=== PATIENT | female | born 1935 | race Caucasian/White ===

== ENCOUNTER 2019-03-15 09:30 | Inpatient (IN) ==
[2019-03-15] MEDS ORDERED: NS 500 ML IV ONE (09:56)
[2019-03-15] MEDS ORDERED: VANCOMYCIN 1 GM/NS 1 GM/250 ML IVPB IV ONE (09:56)
[2019-03-15] MEDS ORDERED: NS 1,000 ML IV ONE (09:56)
[2019-03-15] MEDS ORDERED: MAXIPIME 2 GM in NS 100 ML IV ONE (09:56)
[2019-03-15] MEDS ORDERED: NS 2,000 ML ONE (10:01)
[2019-03-15 11:06] LABS: CK INDEX 1.4 (0.0-2.5); CK-MB 33.83 ng/mL (0.0-5.0)
[2019-03-15 12:00] LABS: BASO# 0.01 X1000 (0.0-0.2); BASO% 0.1 % (0.0-0.8); HEMATOCRIT 38.4 % (37.0-47.0); HEMOGLOBIN 12.7 g/dL (12.0-16.0); IMM GRAN# 0.03 X1000 (0.0-0.04); IMM GRAN% 0.3 % (0.0-0.5); LYMPH# 0.59 X1000 (1.2-3.4); MCH 32.2 PG (27-31); MCHC 33.1 g/dL (33-37); MCV 97.2 FL (81-99); MONO# 0.97 X1000 (0.11-0.59); MONO% 9.8 % (1.7-9.3); MPV 10.4 FL (7.4-10.4); NEUT# 8.28 X1000 (1.4-6.5); NEUT% 83.8 % (42.2-75.2); PLT 269 X1000 (130-400); RBC 3.95 XMIL (4.2-5.4); RDW 14.4 % (11.5-14.5); WBC 9.88 X1000 (4.8-10.8)
[2019-03-15 12:04] LABS: INR 1.07
[2019-03-15 12:05] LABS: PTT 28.8 Seconds (22.3-41.8)
[2019-03-15 12:07] LABS: ALB/GLOB RATIO 1.5; ALBUMIN 4.3 g/dL (3.5-5.0); CALCIUM 9.3 mg/dL (8.8-10.2); CREATININE 0.9 mg/dL (0.5-0.9); POTASSIUM 4.3 mmol/L (3.5-5.1); TOTAL BILIRUBIN 1.04 mg/dL (0.20-1.00); TOTAL PROTEIN 7.1 g/dL (6.3-8.3)
--- NOTE | 2019-03-15 12:28 | Diag Imaging Result Doc PS360 ---
EXAM: CT HEAD W/O CONTRAST - 03/15/2019 HISTORY: ams TECHNIQUE: CT head without contrast COMPARISON: 08/17/2018 FINDINGS: There are atrophic changes and chronic microvascular ischemic changes similar to prior. There is no indication of recent infarct, although acute infarcts may not be immediately visible. There is no evidence of intracranial hemorrhage, mass effect, or midline shift. There is no evidence of skull fracture. There are postsurgical changes at the left frontoparietal skull similar to prior. Visualized portions of paranasal sinuses and mastoid air cells appear clear. IMPRESSION: No visible acute intracranial abnormality. No hemorrhage or mass effect. This exam was performed using automated exposure control, adjustment of mA or kV according to patient size, and/or use of iterative reconstruction technique. Electronically signed by Bari Lomeli 03/15/2019 12:26 PM
--- NOTE | 2019-03-15 12:35 | Diag Imaging Result Doc PS360 ---
EXAM: CT PELVIS W/O CONTRAST - 03/15/2019 HISTORY: leg/pelvic pain post fall TECHNIQUE: CT bony pelvis without contrast COMPARISON: 10/22/2017 CT abdomen/pelvis FINDINGS: There is a comminuted intertrochanteric fracture of the right femur with varus deformity. There is an apparent subacute compression fracture the superior L4 vertebral body which is partially visualized at the top of the scan. There is associated sclerosis which is compatible with some healing. There is retropulsion of the posterior margin of L4 into the spinal canal measuring 4 mm. IMPRESSION: Intertrochanteric fracture of right femur with varus deformity. Subacute compression fracture of L4. This exam was performed using automated exposure control, adjustment of mA or kV according to patient size, and/or use of iterative reconstruction technique. Electronically signed by Bari Lomeli 03/15/2019 12:33 PM
[2019-03-15] MEDS ORDERED: MORPHINE IV ONE (13:07)
--- NOTE | 2019-03-15 13:41 | PROVIDER DOCUMENTATION ---
This chart was entered by Ying Rose Scribe, acting as scribe for Pardeep Pickens MD. HPI-Musculoskeletal Pain/Inj - GENERAL Chief Complaint: Fall Stated Complaint: FALL/ POSSIBLE FEMUR FX Time Seen by Provider: 03/15/19 09:35 Source: patient, EMS - HX OF PRESENT ILLNESS-MUSKULOSKELTAL Nature of Presenting Problem: 83 yowf presents to the ed via ems post fall. pt was found by her neighbor in the floor of her home with complaint of rt hip pain. pt has obvious shortening of RLE and pain with movement or palpation of area. pt vital signs showed she was hypothermic and beir hugger was placed on pt. pt will be sent to [facility] for rehabilitation for a head/pelvis CT via ambulance Quality of Pain: reports: sharp, stabbing Severity in ED: moderate Onset/Duration: unsure (neighbor hound this am and not sure when pt fell) Timing: still present Modifying Factors: improves with: immobilization. worse with: movement, palpation Any recent injury?: Yes (fall at home) Locality of Occurance: Home Similar Symptoms Previously?: No Recently seen or treated by another doctor?: No - FALL INJURY Location of Pain/Injury: reports: other (rt hip) Reason for Fall: reports: unknown Symptoms prior to fall:: reports: none Loss of Consciousness: unsure (pt doesnt think so but has dementia) Injury Associated Symptoms: reports: joint pain (rt hip), unable to bear weight, trouble walking. denies: back/neck pain, chest pain, headaches, nausea, shortness of breath, vomiting - HIP/PELVIS PAIN/INJURY Hip Pain Location: reports: hip (R) Pain Radiation: reports: no radiation Context / Method of Injury: reports: fall Associated Symptoms: reports: denies symptoms - LOWER EXTREMITY PAIN/INJURY Context / Method of Injury: reports: fell Associated Symptoms: reports: denies symptoms Review of Systems - Adult - REVIEW OF SYSTEMS - ADULT ROS:: limited per condition (dementia pt poor historian) Constitutional: reports: no symptoms reported Eyes: denies: blurred vision, double vision Ears, Nose, Mouth & Throat: reports: no symptoms reported Cardiovascular: denies: chest pain, palpitations Respiratory: denies: cough, shortness of breath, wheezing Gastrointestinal: denies: abdominal pain, diarrhea, nausea, vomiting Genitourinary: reports: no symptoms reported Musculoskeletal: reports: see HPI, joint pain, joint swelling. denies: back pain, neck pain Integumentary: reports: no symptoms reported Neurological: denies: dizziness/vertigo, headache/migraines Psychiatric: reports: no symptoms reported Endocrine: reports: no symptoms reported Hematologic/Lymphatic: reports: no symptoms reported Allergic/Immunologic: reports: no symptoms reported All Other Systems: Reviewed and Negative Past History - Adult - PAST MEDICAL HISTORY-ADULT Review of Records: reports: Old Records Reviewed, Nursing Assessment Review, Medications Reviewed, Social history reviewed & non-contributory. Major Childhood Illnesses: reports: denies history Cardiovascular: reports: HTN, hyperlipidemia Respiratory: reports: denies history Gastrointestinal: reports: GERD Obstetrical/Gynecological: reports: denies history Genitourinary: reports: denies history Musculoskeletal: reports: denies history Hand Dominance: Right Handed Neurological: reports: dementia, TIA Psychiatric: reports: denies history Endocrine/Immune: reports: thyroid disorder (hypo) Other Conditions: reports: cataract/glaucoma - PRIOR SURGERIES/PROCEDURES Surgical/Procedure History: reports: hysterectomy, other (brain hemorrhage) - IMMUNIZATION STATUS Childhood Immunizations: See Nurse Assessment Flu Vaccine: See Nurse Assessment - FAMILY HISTORY Family History: reviewed, not pertinent - SOCIAL HISTORY Smoking: quit greater than 1 year Substance Use: none/never Living Situation: family Physical Exam-Injury Related - Physical Exam-Injury Related Exam Limited by: pt is poor historiansecondary to dementia Initial Vital Signs Reviewed: Yes (temp-88.2 HR-102 RR-27 O2-87% RA BP-153/114) General Appearance: alert, no apparent distress (poor historian) Eyes: PERRL/EOMI, pink conjunctivae Head, Ears, Nose, Mouth & Throat: moist mucous membranes Neck: non-tender, full range of motion, supple, normal inspection Respiratory: chest non-tender, lungs clear, normal breath sounds, increased rate (27), other (87% on RA) Cardiovascular: normal peripheral pulses, tachycardia (102) Chest/Breast: deferred Abdominal Exam: normal bowel sounds, non tender, soft Female Genitalia/Pelvic Exam: deferred Rectal Exam: deferred Hemoccult Exam: deferred Lymphatic: no adenopathy Back Exam: normal inspection, no CVA tenderness, no vertebral tenderness Extremity: normal capillary refill, swelling (rt proximal thigh), tenderness (rt proximal hip/thigh region tenderness and swelling with shortening noted to RLE). negative: normal range of motion, normal gait, normal inspection Integumentary: normal color, warm/dry, swelling (rt proximal thigh) Neurologic: grossly normal Psych/Mental Status: normal mood/affect, normal thought content, normal thought process, other (pt is alert but has dementia so is baseline confused) - Glascow Coma Score Best Eye Response (Ophiem): (4) open spontaneously Best Verbal Response (Ophiem): (4) confused conversation Best Motor Response (Ophiem): (6) obeys commands Ophiem Total: 14 Progress - PLAN OF CARE/RESULTS Progress/Plan/Lab Results: Vital Signs - 8 hr 03/15/19 09:32 03/15/19 10:06 03/15/19 11:03 Temperature 88.2 F L 91.9 F L Pulse Rate 102 H 94 H 97 H Respiratory Rate 27 H 22 24 Blood Pressure 153/114 150/81 149/52 O2 Sat by Pulse Oximetry 87 L 95 03/15/19 13:23 03/15/19 13:30 Temperature 96.1 F L Pulse Rate 110 H Respiratory Rate 24 Blood Pressure 145/93 O2 Sat by Pulse Oximetry 95 03/15/19 10:28 Influenza Screen - Final Nasopharyngeal Laboratory Results - last 24 hr 03/15/19 03/15/19 03/15/19 09:40 09:40 09:40 WBC RBC Hgb Hct MCV MCH MCHC RDW Std Deviation Plt Count MPV Immature Gran % (Auto) Neut % (Auto) Lymph % (Auto) Erath % (Auto) Eos % (Auto) Baso % (Auto) Immature Gran # (Auto) Neut # (Auto) Lymph # (Auto) Erath # (Auto) Eos # (Auto) Baso # (Auto) PT INR PTT (Actin FS) Sodium Potassium Chloride Carbon Dioxide Anion Gap BUN Creatinine Estimated GFR/1.73 m2 BUN/Creatinine Ratio Glucose Calculated Osmolality Calcium Total Bilirubin AST ALT Alkaline Phosphatase Creatine Kinase 2460 H Creatine Kinase Index 1.4 CK-MB (CK-2) 33.83 H Troponin T < 0.010 Total Protein Albumin Globulin Albumin/Globulin Ratio Plasma Lactate 4.2 H* 03/15/19 03/15/19 03/15/19 09:40 09:40 09:40 WBC 9.88 RBC 3.95 L Hgb 12.7 Hct 38.4 MCV 97.2 MCH 32.2 H MCHC 33.1 RDW Std Deviation 14.4 Plt Count 269 MPV 10.4 Immature Gran % (Auto) 0.3 Neut % (Auto) 83.8 H Lymph % (Auto) 6.0 L Erath % (Auto) 9.8 H Eos % (Auto) 0.0 Baso % (Auto) 0.1 Immature Gran # (Auto) 0.03 Neut # (Auto) 8.28 H Lymph # (Auto) 0.59 L Erath # (Auto) 0.97 H Eos # (Auto) 0.00 Baso # (Auto) 0.01 PT 14.0 INR 1.07 PTT (Actin FS) 28.8 Sodium 138 Potassium 4.3 Chloride 94 L Carbon Dioxide 24 L Anion Gap 20 BUN 21 Creatinine 0.9 Estimated GFR/1.73 m2 60 BUN/Creatinine Ratio 23 Glucose 123 H Calculated Osmolality 280 Calcium 9.3 Total Bilirubin 1.04 H AST 59 H ALT 20 Alkaline Phosphatase 116 H Creatine Kinase Creatine Kinase Index CK-MB (CK-2) Troponin T Total Protein 7.1 Albumin 4.3 Globulin 2.8 Albumin/Globulin Ratio 1.5 Plasma Lactate Orders Category Date Time Status Cardiac Monitoring DIRECTED Care 03/15/19 09:56 Active Broussard Cath Insertion ORDERED Care 03/15/19 11:34 Active IV Insertion ORDERED Care 03/15/19 09:56 Completed IV Insertion ORDERED Care 03/15/19 09:56 Completed Notify MD of + Sepsis Screen NOW Care 03/15/19 09:56 Active Notify MD/PA/TAMARA for exam NOW Care 03/15/19 09:56 Active Notify Physician As Ordered Care 03/15/19 09:56 Active Repeat Vital Signs .Blood Pressure Care 03/15/19 09:56 Active Repeat Vital Signs .Heart Rate Care 03/15/19 09:56 Active Repeat Vital Signs .Oxygen Saturation Care 03/15/19 09:56 Active Repeat Vital Signs .Respiratory Rate Care 03/15/19 09:56 Active Repeat Vital Signs .Temp Care 03/15/19 09:56 Active CHEST-1 VIEW [RAD] Stat Exams 03/15/19 11:[address] HEAD W/O CONTRAST [CT] Stat Exams 03/15/19 11:[address] PELVIS W/O CONTRAST [CT] Stat Exams 03/15/19 11:26 Completed BLOOD CULTURE [BLDCUL] Stat Lab 03/15/19 10:24 Results CBC WITH DIFF [HEME] Stat Lab 03/15/19 09:40 Completed CK PROFILE [SP CHEM] Stat Lab 03/15/19 09:40 Completed COMPREHENSIVE METABOLIC PANEL [CHEM] Stat Lab 03/15/19 09:40 Completed Flu Swab [INFLUENZA SCREEN A/B] Stat Lab 03/15/19 10:28 Completed LACTATE, PLASMA [CHEM] Q3H Lab 03/15/19 13:40 Ordered LACTATE, PLASMA [CHEM] Q3H Lab 03/15/19 16:00 Uncollected LACTATE, PLASMA [CHEM] Timed Lab 03/15/19 09:40 Completed PROTIME WITH INR [COAG] Stat Lab 03/15/19 09:40 Completed PTT [COAG] Stat Lab 03/15/19 09:40 Completed TROPONIN T Stat Lab 03/15/19 09:40 Completed URINALYSIS W/POSS RFLX CULT [URINALYSIS] Stat Lab 03/15/19 13:22 Ordered URINALYSIS [URINALYSIS] Stat Lab 03/15/19 13:22 Ordered 0.9% Sodium Chloride Inj [Ns] 1,000 ml Med 03/15/19 13:30 Active IV 150 mls/hr 0.9% Sodium Chloride Inj [Ns] 1,000 ml Med 03/15/19 09:56 Discontinued IV As Directed mls/hr 0.9% Sodium Chloride Inj [Ns] 2,000 ml Med 03/15/19 10:01 Discontinued .ROUTE As directed 0.9% Sodium Chloride Inj [Ns] 500 ml Med 03/15/19 09:56 Discontinued IV 999 mls/hr CefEPIME [Maxipime] 2 gm Med 03/15/19 09:56 Discontinued 0.9% Sodium Chloride Inj [Ns] 100 ml IV NOW Morphine Med 03/15/19 13:07 Discontinued 2 mg IV NOW ONE Vancomycin 1 gm/Ns Med 03/15/19 09:56 Discontinued 1 gm in 250 ml IV NOW Oxygen Device Stat Oth 03/15/19 09:56 Completed Oxygen Device Stat Oth 03/15/19 11:44 Active Result Diagrams: 03/15/19 09:40 03/15/19 09:40 - REASSESSMENT Reassessment #1 Time Reassessed: 10:08 (devon soto placed on pt for hypothermia ) Status: unchanged Reassessment #2 Time Reassessed: 11:41 (body temp has improved ) Status: improving Reassessment #3 Time Reassessed: 13:08 (pt is resting i bed) Status: unchanged - EKG 1 Time of EKG reading by physician:: 10:26 EKG Read and Signed by:: Pardeep Pickens EKG Interpretation (*Must complete 3 of following elements*): Abnormal Rate: 99 Rhythm: NSR with fusion complexes [place]: normal QRS: normal ST Wave: non-specific ST changes (inferiorly) - XRAY 1 XRAY: Bilateral XRAY Study: Chest Impression: See EMR Report - CT/MRI 1 CT Study: Pelvis Impression: See EMR Report (EXAM: CT PELVIS W/O CONTRAST - 03/15/2019 HISTORY: leg/pelvic pain post fall TECHNIQUE: CT bony pelvis without contrast COMPARISON: 10/22/2017 CT abdomen/pelvis FINDINGS: There is a comminuted intertrochanteric fracture of the right femur with varus deformity. There is an apparent subacute compression fracture the superior L4 vertebral body which i s partially visualized at the top of the scan. There is associated sclerosis which is compatible with some healing. There is retropulsion of the posterior margin of L4 into the spinal canal measuring 4 mm. IMPRESSION: Intertrochanteric fracture of right femur with varus deformity. Subacute compr ession fracture of L4. This exam was performed using automated exposure control, adjustment of mA or kV according to patient size, and/or use of iterative reconstruction technique. Electronically signed by Bari Lomeli 03/15/2019 12:33 PM 03/15/19 1233 Interpreting Physician: Bari Lomeli MD Dictated Date/Time: 03/15/19 1227 cc: Pardeep Pickens MD; Marcial Gallegos MD) 2 CT Study: Head Impression: See EMR Report (EXAM: CT HEAD W/O CONTRAST - 03/15/2019 HISTORY: ams TECHNIQUE: CT head without contrast COMPARISON: 08/17/2018 FINDINGS: There are atrophic changes and chronic microvascular ischemic changes similar to prior. There is no indication of recent infarct, although acute infarcts may not be immediately visible. There is no evidence of intracranial hemorrhage, mass effect, or midline shift. There is no evidence of skull fracture. There are postsurgical changes at the left frontoparietal skull similar to prior. Visualized portions of paranasal sinuses and mastoid air cells appear clear. IMPRESSION: No visible acute intracranial abnormality. No hemorrhage or mass effect. This exam was performed using automated exposure control, adjustment of mA or kV according to patient size, and/or use of iterative reconstruction technique. Electronically signed by Bari Lomeli 03/15/2019 12:26 PM 03/15/19 1226 Interpreting Physician: Bari Lomeli MD Dictated Date/Time: 03/15/19 1221 cc: Pardeep Pickens MD; Marcial Gallegos MD) - CONSULTS/PCP/HOSPITALIST Notification #1 *Consult/PCP/Hospitalist*: hospitalist Time Discussed: 13:38 Consult Disposition: Admit #2 Consult: dr grant roque Time Discussed: 13:39 Reason/Comments: will consult Consult Disposition: Will see in ED Departure - Departure Date of Disposition Decision: 03/15/19 Time of Disposition Decision: 13:00 DIAGNOSIS: Closed intertrochanteric fracture of right femur Qualifiers: Encounter type: initial encounter Fracture alignment: displaced Qualified Code(s): S72.141A - Displaced intertrochanteric fracture of right femur, initial encounter for closed fracture Rhabdomyolysis Qualifiers: Rhabdomyolysis type: non-traumatic Qualified Code(s): M62.82 - Rhabdomyolysis Disposition: ADMITTED INPATIENT 09 Certified Medical Emergency: Emergent Condition: Good Referrals and Follow-Ups: Marcial Gallegos MD [Primary Care Provider] - - Critical Care Note This patient required my direct & personal management of CC.: Yes Total Time (mins): 42 Critical Care Statement: This patient required my direct personal management to treat or rule out processes, the absence of which, could potentiallly result in sudden, clinically significant life or limb threatening deterioration. Attestation - Physician/ TRACEY Attestation Patient care was provided by Advanced Practice Provider:: No The physician spent face to face time with patient:: Yes Advanced Practice Provider documentation review:: Supervising physician onsite and consulted in the evaluation and care of this patient. The physician did have a face to face encounter with the patient. This chart was documented by the indicated scribe, (Ying Rose Scribe) and accurately reflects the services I performed and decisions made by me, Pardeep Pickens MD, as attested by the provider's signature.
--- NOTE | 2019-03-15 13:46 | Diag Imaging Result Doc PS360 ---
EXAM: CHEST-1 VIEW - 03/15/2019 HISTORY: cough/possible sepsis TECHNIQUE: Portable chest one view COMPARISON: 10/26/2017 FINDINGS: Heart size appears mildly enlarged. There is nonspecific opacity at the medial left base which is somewhat similar to prior and may relate to scarring, atelectasis, or infiltrate. There is subsegmental atelectasis at the right base. The upper lungs appear clear of acute changes. There is no substantial pleural effusion or pneumothorax identified. There is an old fracture deformity of the right clavicle noted. IMPRESSION: Left basilar scarring versus recurrent atelectasis or infiltrate. Electronically signed by Bari Lomeli 03/15/2019 1:43 PM
[2019-03-15 14:23] LABS: URINE SOURCE CATH
[2019-03-15 14:26] LABS: BILIRUBIN URINE NEGATIVE (NEGATIVE); BLOOD URINE MODERATE (NEGATIVE); COLOR YELLOW; GLUCOSE URINE NEGATIVE (NEGATIVE); KETONE URINE 10 mg/dL (NEGATIVE); LEUKOCYTES URINE NEGATIVE (NEGATIVE); NITRITE URINE NEGATIVE (NEGATIVE); PROTEIN URINE 30 mg/dL (NEGATIVE); SP GRAVITY URINE 1.023; TURBIDITY URINE CLEAR (CLEAR); UROBILINOGEN URINE NORMAL (NORMAL)
[2019-03-15] MEDS ORDERED: TYLENOL PO PRN ×2 (14:26→14:29)
[2019-03-15] MEDS ORDERED: ZOFRAN IV PRN (14:26)
[2019-03-15 14:27] LABS: UR EPITHELIAL CELLS <10 /HPF (<10); URINE BACTERIA NEGATIVE /HPF; URINE RBC <10 /HPF (<10); URINE WBC <10 /HPF (<10)
[2019-03-15] MEDS ORDERED: ROCEPHIN 2 GM in NS 50 ML IV SCH (14:30)
[2019-03-15] MEDS: NS 1,000 ML IV SCH (14:57)
[2019-03-15] MEDS: DILAUDID IV PRN (15:29)
--- NOTE | 2019-03-15 15:34 | HISTORY AND PHYSICAL ---
PRIMARY CARE PHYSICIAN: Dr. Marcial Gallegos. ORTHOPEDICS: Dr. Jose Diaz. CHIEF COMPLAINT: Fall, right hip pain. HISTORY OF PRESENT ILLNESS: This is an 83-year-old female with a prior history of dementia, hypothyroid, hypertension, hyperlipidemia. She presents to the emergency room after being found out on her carport by neighbors. It is unknown how long she was actually out on the carport and she does not remember falling or the incident. The son stated that the patient thought yesterday, she might have the flu because she had a headache and felt bad all over. On arrival to the emergency room, she complained of right leg pain, headache, and she did have some swelling to her right eye. CT of the pelvis revealed intertrochanteric fracture of the right femur with varus deformity. PAST MEDICAL HISTORY: 1. Hypertension. 2. Dementia. 3. Hyperlipidemia. 4. Hypothyroid. 5. History of a brain bleed after a fall 5 years ago. PAST SURGICAL HISTORY: Cataract removal, hysterectomy, repair of brain bleed 5 years ago. SOCIAL HISTORY: She lives alone. She has children that are close and active in her care. She does not smoke. She does drink alcohol occasionally. She denies any illicit drug use. ALLERGIES: Ambien which causes confusion. HOME MEDICATIONS: Elavil, vitamin D3, Synthroid, melatonin, Namenda, Toprol, Crestor, and vitamin B1. REVIEW OF SYSTEMS: Discussed with patient with pertinent positives stated in the HPI. She denied any syncope or dizziness, any change in vision, any chest pain, palpitations, shortness of breath, cough, fever, chills, any nausea, vomiting, diarrhea, constipation, black or bloody vomitus or stools, hematuria, dysuria, frequency, urgency. PHYSICAL EXAMINATION: GENERAL: This is an 83-year-old female who is lying on the stretcher in the emergency room in no distress. VITAL SIGNS: Blood pressure is 149/50, with heart rates at 97. Respirations are 22. Temperature is 97.1 degrees, O2 saturations are 94 to 96 percent on 2 L nasal cannula. HEENT: Head is normocephalic, atraumatic. Mucous membranes are moist. NECK: Supple with trachea midline. CARDIOVASCULAR: Regular rate and rhythm. S1 and S2 appreciated. She has edema to her right proximal thigh. Calves are nontender with peripheral pulses palpable x4 extremities. PULMONARY: Breath sounds are clear with no increased work of breathing noted. Chest rises and falls symmetric to respiration. GASTROINTESTINAL: Abdomen is soft, nontender, nondistended, with bowel sounds in all 4 quadrants. GENITOURINARY: She has no CVA tenderness. Broussard is patent to bedside bag with clear yellow urine draining. NEUROLOGIC: She is alert. She is oriented to herself and family members. LABORATORY AND DIAGNOSTIC DATA: WBC is 9.8, with hemoglobin 12.7, hematocrit 38.4, platelets of 269,000. Sodium 138, potassium 4.3, BUN 21, creatinine 0.9, with a glucose of 123. Total bilirubin is 1.04. Total CPK is 2460 with a CK-MB of 33.83. Troponin less than 0.010. Lactate is 4.2. CT of the head revealed no visible acute intracranial abnormality. No hemorrhage or mass effect. Pelvis CT revealed a right intertrochanteric fracture with varus deformity and subacute compression fracture of L4. Chest x-ray with left basilar scarring versus recurrent atelectasis or infiltrate that was present on October 2017 film. ASSESSMENT: 1. Fall. 2. Right intertrochanteric femur fracture. 3. Hypothermia 4. Hypoxemia. 5. Rhabdomyolysis. 6. Left basilar scarring versus recurrent atelectasis or infiltrate. 7. Dementia. 8. Hypothyroid. PLAN: The patient will be admitted to the surgical floor. She will be placed on telemetry. Dr. Diaz been consulted from Orthopedic Surgery. We will consult Video Journalist for discharge planning. Will continue with supplemental oxygen, start incentive spirometer q.4 hours when awake. She will be placed on telemetry. She will remain NPO until seen by Dr. Diaz. We will check a total CPK and a BMP tonight at 8:00. Repeat a CBC, CMP, total CK in the morning. We will give Dilaudid for pain. Antibiotic coverage of Rocephin and azithromycin, and further antibiotics will be culture driven. Will use Zofran for nausea. We will continue with IV hydration. We will identify her home medications and continue as appropriate. For GI prophylaxis, Prilosec. Further treatments pending hospital course. The patient was examined and plan was discussed with Dr. Banks. Dictated by TAMARA Segura for Doug Casillas MD Addendum: Patient seen and examined by myself. Agree with TAMARA note. It reflects my assessment and plan. Patient is being admitted to hospital for right hip fracture and rhabdomyolysis. Will consult Orthopedics and will provide IV fluids, check BMP and CK daily. cc: TAMARA Segura MD [facility]
--- NOTE | 2019-03-15 16:36 | Diag Imaging Result Doc PS360 ---
EXAM: XRAY PELVIS W/HIP 2-3VW RT - 03/15/2019 HISTORY: Hip Fracture TECHNIQUE: Portable right hip and pelvis three views COMPARISON: 03/15/2019 CT pelvis FINDINGS: There is an intertrochanteric fracture of the right femur with varus deformity, as seen on the prior CT. There is no other fracture or dislocation identified. IMPRESSION: Intertrochanteric fracture of right femur with varus deformity. Electronically signed by Bari Lomeli 03/15/2019 4:33 PM
--- NOTE | 2019-03-15 16:38 | Diag Imaging Result Doc PS360 ---
EXAM: FEMUR MIN 2 VIEWS RIGHT - 03/15/2019 HISTORY: Hip fracture TECHNIQUE: Right femur two views COMPARISON: None. FINDINGS: Other than the intertrochanteric fracture of the proximal femur, there is no fracture identified. IMPRESSION: No fracture identified other than the intertrochanteric fracture. Electronically signed by Bari Lomeli 03/15/2019 4:36 PM
--- NOTE | 2019-03-15 16:40 | ORTHOPAEDICS CONSULTATION ---
DATE: 03/15/2019 REFERRING PHYSICIAN: Florencia LENNON. REASON FOR CONSULTATION: Right hip fracture. PAST MEDICAL HISTORY: 1. Hypertension. 2. Hyperlipidemia. 3. Dementia. 4. Hypothyroid. PAST SURGICAL HISTORY: 1. Cataract surgery. 2. Esophageal hiatal hernia repair. 3. Cranial surgery, status post fall. MEDICATIONS: 1. Synthroid. 2. Melatonin. 3. Rosuvastatin. 4. Vitamin B. 5. Vitamin D3. 6. Metoprolol. 7. Nexium. 8. Memantine. 9. Amitriptyline. ALLERGIES: The patient has allergy to Ambien. SOCIAL HISTORY: Patient lives in [place] alone. She is a community ambulator without assistive device. She still drives. Denies any tobacco, alcohol, or drug use. FAMILY HISTORY: Noncontributory. REVIEW OF SYSTEM: A 10-point review of systems was completed and is negative other than what is listed in history of present illness. CHIEF COMPLAINT: Right hip pain. HISTORY OF PRESENT ILLNESS: Ms. Chirinos is an 83-year-old lady who sustained a same-level fall outside yesterday evening, while walking back up into her house from getting the mail. She was found down the following morning by her neighbor and transferred via ambulance to the hospital. Patient was found to be hypothermic upon arrival, and had significant pain and deformity in the right hip. X-rays were taken demonstrating a right intertrochanteric femur fracture. Orthopedic Surgery was thus consulted. Lab work done upon arrival demonstrating elevated CPK levels secondary to rhabdomyolysis due to her fall and prolonged time on the ground lying there. The patient denies any hip pain prior to the fall. Her daughter states she has had several falls recently over the last couple of years. She has dementia that has been worsening as of late. PHYSICAL EXAMINATION: General: Ms. Chirinos is an 83-year-old, female, who appears well nourished, well developed, in no acute distress. She is awake and alert, but not oriented to person, place, or time. Vital Signs: Temperature 98.2 degrees Fahrenheit, heart rate is 119, respiratory rate 24, blood pressure 138/57, O2 saturation is 91% on 2 L by nasal cannula. HEENT: Normocephalic, atraumatic. Respiratory: Nonlabored breathing. Cardiovascular: Regular rate and rhythm. Extremities: Examination of right lower extremity shows skin intact. Patient has tenderness to palpation over her hip on the right side. She is nontender in her knee, leg, ankle, and foot. Motor is intact to EHL, tibialis anterior, gastrocsoleus complex. Sensation intact to light touch of L3-S1. Dorsalis pedis pulses palpable and equal bilaterally. Thigh and calf soft, compressible. Examination of left lower extremity and bilateral upper extremities shows skin to be intact with no areas of swelling, crepitus, or deformity. Nontender palpation globally in her other extremities. She is neurovascularly intact. LABORATORY DATA: White count 10, hemoglobin 12.7, hematocrit 38, platelets 269,000. INR is 1.1. Sodium 138, potassium 4.3, chloride 94, CO2 is 24, BUN 21, creatinine 0.9, glucose 123. Creatine kinase is 2460. Troponin is less than 0.01. Lactate us 2.4. UA is negative for infection. IMAGING: CT scan of the pelvis obtained by the ER physician, demonstrated a comminuted, shortened, right intertrochanteric femur fracture. ASSESSMENT: An 83-year-old female status post fall the previous evening and was found down this morning with a right comminuted intertrochanteric femur fracture as well as rhabdomyolysis. PLAN: 1. A long discussion was had with the patient and family regarding diagnosis and treatment options. Given her fracture pattern, she would benefit from closed reduction and intramedullary nailing of her intertrochanteric femur fracture. Risks, benefits, alternative therapies were discussed with the patient and family regarding surgery. Risks of surgery include, but are not limited to, risks of bleeding, infection, damage to nerves and vessels around the area, continued pain following surgery, need for revision surgery, malunion and nonunion. There is also risk of anesthesia including blood clot, stroke, heart attack, even . The patient and family understand these risks. All questions were answered. We will plan on doing surgery tomorrow morning as long as she is cleared by the Hospitalist Service. 2. The patient is to be nonweightbearing to right lower extremity. We will get her hooked up with Pugh's traction to help with the alignment of the fracture and muscle spasms through the night. 3. Ice to right lower extremity as needed for pain. 4. Okay for diet up until midnight tonight. NPO at midnight tonight in anticipation of surgery in the morning. 5. Admit to hospitalist for surgical clearance.
[2019-03-15 20:45] LABS: CALCIUM 7.9 mg/dL (8.8-10.2); CREATININE 0.9 mg/dL (0.5-0.9); POTASSIUM 4.2 mmol/L (3.5-5.1)
[2019-03-16] MEDS: NS 1,000 ML IV SCH (00:08)
[2019-03-16] MEDS: PRILOSEC PO SCH (06:28)
--- NOTE | 2019-03-16 06:41 | ORTHOPAEDICS PROGRESS NOTE ---
DATE: 03/16/2019 SUBJECTIVE: No acute events overnight. The patient was resting in her room in Pugh's traction. She has been n.p.o. since midnight. LABS: Hematocrit is 38. OBJECTIVE: Examination of right lower extremity shows Pugh's traction to be intact. Thigh and calf soft and compressible. Toes are up and downgoing. Sensation is grossly intact to light touch L3 to S1. Dorsalis pedis pulse palpable. ASSESSMENT: This is an 83-year-old female with a right intertrochanteric femur fracture. PLAN: 1. We will plan on going to the operating room this morning for closed reduction and intramedullary nailing of her right intertrochanteric femur fracture. She is to remain nonweightbearing on right lower extremity until surgery. She is NPO since midnight. 2. Hold chemical DVT prophylaxis until postop. 3. Ice to right lower extremity as needed for pain. 4. I appreciate the hospitalist's recommendations. 5. I will have physical therapy start to work with the patient postoperatively. She will likely need placement in rehab upon discharge.
[2019-03-16 07:10] LABS: BASO# 0.01 X1000 (0.0-0.2); BASO% 0.1 % (0.0-0.8); EOS# 0.01 X1000 (0.0-0.7); EOS% 0.1 % (0.0-10.0); HEMATOCRIT 29.3 % (37.0-47.0); HEMOGLOBIN 9.7 g/dL (12.0-16.0); IMM GRAN# 0.04 X1000 (0.0-0.04); IMM GRAN% 0.4 % (0.0-0.5); LYMPH# 0.86 X1000 (1.2-3.4); LYMPH% 9.2 % (20.5-51.1); MCH 33.7 PG (27-31); MCHC 33.1 g/dL (33-37); MCV 101.7 FL (81-99); MONO# 0.97 X1000 (0.11-0.59); MONO% 10.4 % (1.7-9.3); MPV 10.2 FL (7.4-10.4); NEUT# 7.42 X1000 (1.4-6.5); NEUT% 79.8 % (42.2-75.2); PLT 210 X1000 (130-400); RBC 2.88 XMIL (4.2-5.4); RDW 15.5 % (11.5-14.5); WBC 9.31 X1000 (4.8-10.8)
[2019-03-16 07:20] LABS: BANDS 4 % (0-1); LYMPHS 8 % (21-51); MONO 6 % (1-9); SEGS 82 % (42-75)
[2019-03-16 07:42] LABS: ALB/GLOB RATIO 1.3; ALBUMIN 3.3 g/dL (3.5-5.0); TOTAL BILIRUBIN 0.48 mg/dL (0.20-1.00); TOTAL PROTEIN 5.8 g/dL (6.3-8.3)
[2019-03-16] MEDS ORDERED: DIPRIVAN 1% ONE (07:54)
[2019-03-16] MEDS ORDERED: KEFZOL 1 GM/D5W 1 GM/50 ML IVPB ONE (08:35)
[2019-03-16] MEDS ORDERED: MARCAINE 0.25% PF/EPI 1:200,000 ONE (09:37)
[2019-03-16] MEDS ORDERED: MILK OF MAGNESIA PO PRN (10:13)
[2019-03-16] MEDS ORDERED: MORPHINE IV PRN (10:13)
[2019-03-16] MEDS ORDERED: ZOFRAN IV PRN (10:13)
[2019-03-16] MEDS ORDERED: KEFZOL 1 GM/D5W 1 GM/50 ML IVPB IV SCH (10:15)
[2019-03-16] MEDS ORDERED: DUONEB (A & A) INH PRN ×2 (10:18→13:14)
--- NOTE | 2019-03-16 11:05 | Diag Imaging Result Doc PS360 ---
EXAM: FEMUR MIN 2 VIEWS RIGHT HISTORY: Post-op TECHNIQUE: Four views COMPARISON: 03/15/2019 FINDINGS: There has been orthopedic fixation of the prior intertrochanteric fracture. The femoral júnior is well-positioned within the shaft of the femur. The femoral head is well-positioned in the acetabulum. There are lateral skin dixie. IMPRESSION: Recent orthopedic fixation of the intertrochanteric fracture. Electronically signed by Devon Gonzáles 03/16/2019 11:02 AM
[2019-03-16] MEDS: DILAUDID IV PRN (11:47)
--- NOTE | 2019-03-16 12:30 | OPERATIVE NOTE ---
PROCEDURE DATE: 03/16/2019 PREOPERATIVE DIAGNOSIS: Right intertrochanteric femur fracture. POSTOPERATIVE DIAGNOSIS: Right intertrochanteric femur fracture. PROCEDURE PERFORMED: Closed reduction and intramedullary nailing of right intertrochanteric femur fracture. SURGEON: Dr. Jose Diaz. ASSISTANTS: None. ANESTHESIA: Spinal. COMPLICATIONS: None. SPECIMENS: None. DRAINS: None. BLOOD LOSS: 50 mL. IMPLANTS: Synthes right-sided TFN nail measuring 380 mm x 11 mm with a 90 mm helical blade and a 38 mm distal interlocking screw. INDICATIONS FOR PROCEDURE: Ms. Chirinos is an 83-year-old lady who was found down outside of her house 2 nights ago. She was seen in the ER yesterday and was found to have an intertrochanteric femur fracture. Given her fracture pattern, a decision was made to proceed to the operating room for closed reduction and intramedullary nailing. Risks, benefits, and alternative therapies were discussed with the patient and family regarding surgery. Risks of surgery include, but are not limited to risks of bleeding, infection, damage to nerves and vessels around the area, malunion, nonunion, continued pain following surgery, and need for revision surgery. There are also risks of anesthesia including blood clot, stroke, heart attack, even . Patient understands these risks. All questions were answered. Informed consent was obtained. DESCRIPTION OF PROCEDURE: Ms. Chirinos was identified by wristband and greeted in the preop holding area on 03/16/2019. Her right lower extremity, which is the operative site, was then marked with indelible ink per [facility] Your Site protocol. Following this, the patient was transferred back to the operating room for surgery. Upon entering the OR, a spinal anesthetic was placed while on her hospital bed. She was then transferred in a supine position onto the [place] table. Feet were wrapped with Webril and Coban, and placed into the boot holders. All bony prominences were well padded. At this time, a reduction maneuver was performed. A little bit of traction was pulled. Fluoroscopy was brought in, confirming reduction of the fracture. At this time, the right lower extremity was then prepped and draped in routine sterile fashion. Formal time-out was performed, confirming correct patient, procedure, operative site, operative side, and administration of preop antibiotics. Everyone was in agreement. Patient received 2 g of Ancef prior to incision. A knife was used to make a standard 3 cm longitudinal incision about 2 cm proximal to the tip of the greater trochanter. Knife was used to dissect through skin, subcutaneous fat, and fascia. At this time, a finger was placed into the wound and the tip of the greater trochanter was palpated. A guidewire was then placed on the tip of the greater trochanter and fluoroscopy was used to confirm starting point on both AP and lateral views. It was then driven down to the level of the lesser trochanter. At this time, the canal entry reamer was then placed and taken down to the level of the greater trochanter. We then placed the ball-tip guidewire down the femoral canal to the knee. AP and lateral images of the knee were taken, confirming positioning of the guidewire. A measuring device was then used to measure the length of the nail, which was found to be 380 mm. At this time, we then began with sequential reaming of the canal, starting with an 11 mm reamer, followed by a 12.5 mm reamer. A Synthes right-sided 380 x 11 mm TFN nail was then opened and assembled on the back table. The nail was then impacted into position in a routine fashion under fluoroscopic guidance. When we were satisfied with the placement of the nail on x-ray, a second more distal, 2 cm incision was made using a 10 blade knife, and the jig and cannula for the cephalomedullary blade was then placed. Knife was used to dissect through skin and subcutaneous fat, and making a slit in the IT band. The cannulas were then inserted and tightened down to bone. At this time, a guidewire was then driven up into the neck. Fluoroscopy was used to confirm placement of the pin in the center-center part of the head on both AP and lateral views. When we were satisfied with this, it was then driven up to the subchondral bone. Measuring device was then used and the blade was found to be 90 mm. At this time, a 90 mm blade was opened. The lateral cortical drill was then used to make our entry hole in the lateral femoral cortex. At this time, our helical blade was then impacted up into position. The locking screw was then tightened down on the blade and loosened half a turn to allow for dynamic compression of the fracture site. At this time, the insertion arm for the nail was then removed. The final AP and lateral images of the hip were then taken, confirming excellent reduction of the fracture with compression across the fracture site. We then turned our attention to the placement of the single distal interlocking screw. Perfect circles were used to visualize the screw holes distally above the knee. A 10 blade knife was then used to make a poke hole incision, followed by a small drill bit to drill through the nail. A 38 mm screw was then placed in routine fashion. At this time, final AP and lateral images of the fracture site as well as of the knee were obtained, confirming excellent position of hardware and good reduction of fracture. All wounds were copiously irrigated with normal saline. Then 20 mL of 0.25% Marcaine plain were then injected around all wounds for local analgesia. We then proceeded with closure of our deep fascia and IT band with 0 Vicryl suture. Then 2-0 Vicryl suture was used for subcutaneous tissue closure, followed by dixie for skin closure. Wounds were then dressed with Xeroform, 4x4s, and Telfa island dressings. At this time, the patient was then woken up, transferred to her hospital bed, and taken to recovery in stable condition. There were no acute complications during the procedure. All sponge and sharp counts were correct at the conclusion of the procedure.
[2019-03-16] MEDS: ZITHROMAX PO SCH (12:53)
[2019-03-16] MEDS: TYLENOL PO SCH ×2 (12:53→18:20)
[2019-03-16] MEDS: SYNTHROID PO SCH (12:54)
[2019-03-16] MEDS ORDERED: NS 1,000 ML IV SCH ×2 (13:13→13:17)
[2019-03-16] MEDS ORDERED: DUONEB (A & A) INH ONE (13:14)
[2019-03-16] MEDS: TOPROL XL PO SCH (13:24)
--- NOTE | 2019-03-16 13:31 | Diag Imaging Result Doc PS360 ---
EXAM: CHEST-PORTABLE HISTORY: hypoxia TECHNIQUE: Single view COMPARISON: 03/15/2019 FINDINGS: Cardiomegaly remains. There is central vascular prominence. Likely tiny pleural fluid which is decreased. Left basilar granuloma. Moderate scoliosis. Old injury to the right clavicle. IMPRESSION: Mild increase in the pulmonary edema Electronically signed by Devon Gonzáles 03/16/2019 1:29 PM
[2019-03-16] MEDS ORDERED: DUONEB (A & A) INH SCH (15:30)
[2019-03-16] MEDS: LASIX IV SCH (15:54)
--- NOTE | 2019-03-16 16:06 | PROGRESS NOTE ---
DATE: 03/16/2019 SUBJECTIVE: Patient has no major complaints. OBJECTIVE: Vitals: Blood pressure it is 111/57, heart rate of 104, respiratory rate of 20. Temperature is 98.8 degrees. Cardiovascular: Tachy. Pulmonary: She has some rales. GI: Soft, nontender, nondistended. Bowel sounds are positive. LABORATORY DATA: White count is 9, hemoglobin and hematocrit 9 and 29, platelets of 210,000. Creatinine is 1. CK is 3954. PROBLEM LIST: 1. Right intertrochanteric femur fracture. We will continue to follow closely. Continue pain control. Postoperatively, she has developed problem #2. 2. Hypoxic respiratory failure. She is being treated for potential pneumonia with Rocephin and azithromycin, but I am not entirely sure this is not associated with pulmonary edema. We will continue antibiotics. We will continue breathing treatments and follow and evaluate for systolic dysfunction. 3. Dementia. Appears to be stable. Continue current medications and follow. DISPOSITION: Pending her clinical status. She is up to 50% on her FiO2 requirement, so we may have to move her to the [facility] pending further workup. cc: Talha Sen MD
[2019-03-16 16:41] LABS: ALLEN TEST YES; BE -3.1 mmoll (-3.0-3.0); BLOOD TYPE ARTERIAL; HCO3-(ACT) 22.3 mmoll (20.0-26.0); METHB 0.3 % (0.0-1.5); O2(CT) 9.4 mL/dL (15.0-23.0); PCO2(98.6) 43 mmHg (35-45); SAMPLE BLOOD; SAO2 83.7 % (95.0-100.0); THB 8.1 g/dL (11.5-17.4); pH(98.6) 7.33 (7.35-7.45)
[2019-03-16 16:42] LABS: MODALITY VENTIMASK; O2HB 82.1 % (95.0-99.0); PO2(98.6) 42 mmHg (60-100)
[2019-03-16] MEDS ORDERED: SODIUM BICARBONATE 8.4% 150 MEQ in D5W 1,000 ML IV SCH (16:45)
--- NOTE | 2019-03-16 17:07 | EKG Report ---
Test Performed on : 03/15/2019 10:16:55 AM Test Reason : hypoxia Blood Pressure : / mmHG Vent. Rate : 099 BPM Atrial Rate : 099 BPM P-R Int : 180 ms QRS Dur : 068 ms QT Int : 374 ms P-R-T Axes : 076 -02 -20 degrees QTc Int : 479 ms Sinus rhythm. with fusion complexes ST & T wave abnormality, consider inferior ischemia Abnormal ECG When compared with ECG of 08-OCT-2017 16:36, fusion complexes are now present ST elevation now present in Lateral leads T wave inversion now evident in Inferior leads Nonspecific T wave abnormality no longer evident in Anterior leads Unconfirmed Result
[2019-03-16] MEDS: XOPENEX NEB INH SCH ×4 (17:12→23:30)
[2019-03-16 17:22] LABS: HEMATOCRIT 27.6 % (37.0-47.0); HEMOGLOBIN 8.7 g/dL (12.0-16.0)
[2019-03-16] MEDS ORDERED: LASIX IV ONE (17:29)
[2019-03-16 18:05] LABS: CK INDEX 0.7 (0.0-2.5); CK-MB 25.06 ng/mL (0.0-5.0)
[2019-03-16] MEDS: MAXIPIME 2 GM in NS 100 ML IV SCH (18:14)
[2019-03-16] MEDS: ATROVENT NEB INH SCH ×2 (19:33→23:31)
[2019-03-16 19:55] LABS: ALLEN TEST YES; BE 2.6 mmoll (-3.0-3.0); BLOOD TYPE ARTERIAL; METHB 0.9 % (0.0-1.5); O2(CT) 12.4 mL/dL (15.0-23.0); PCO2(98.6) 35 mmHg (35-45); PO2(98.6) 77 mmHg (60-100); SAMPLE BLOOD; SAO2 98.2 % (95.0-100.0); THB 9.1 g/dL (11.5-17.4); pH(98.6) 7.48 (7.35-7.45)
[2019-03-16 19:56] LABS: MODALITY BI PAP
[2019-03-16] MEDS: ELAVIL PO SCH (20:43)
[2019-03-16] MEDS: COLACE PO SCH (20:43)
[2019-03-16] MEDS: MELATONIN PO SCH (20:44)
[2019-03-17] MEDS: MELATONIN PO SCH ×2 (00:53→20:10)
[2019-03-17] MEDS: HALDOL IV PRN (01:15)
[2019-03-17] MEDS: XOPENEX NEB INH SCH ×7 (03:16→23:14)
[2019-03-17] MEDS: TYLENOL PO SCH ×3 (03:50→18:00)
[2019-03-17] MEDS: LASIX IV SCH ×2 (03:51→16:47)
[2019-03-17 05:08] LABS: ALLEN TEST YES; BLOOD TYPE ARTERIAL; HCO3-(ACT) 32.7 mmoll (20.0-26.0); METHB 0.9 % (0.0-1.5); O2(CT) 12.5 mL/dL (15.0-23.0); O2HB 97.1 % (95.0-99.0); PCO2(98.6) 38 mmHg (35-45); PO2(98.6) 105 mmHg (60-100); SAMPLE BLOOD; SAO2 100.2 % (95.0-100.0); pH(98.6) 7.55 (7.35-7.45)
[2019-03-17 05:09] LABS: MODALITY BI PAP
[2019-03-17] MEDS: MAXIPIME 2 GM in NS 100 ML IV SCH ×2 (05:21→16:45)
[2019-03-17] MEDS: PRILOSEC PO SCH (06:07)
[2019-03-17] MEDS: LOVENOX SUBQ SCH (06:07)
[2019-03-17 06:29] LABS: BASO# 0.01 X1000 (0.0-0.2); BASO% 0.1 % (0.0-0.8); EOS# 0.04 X1000 (0.0-0.7); EOS% 0.5 % (0.0-10.0); HEMATOCRIT 27.4 % (37.0-47.0); HEMOGLOBIN 8.7 g/dL (12.0-16.0); IMM GRAN# 0.02 X1000 (0.0-0.04); IMM GRAN% 0.2 % (0.0-0.5); LYMPH# 0.91 X1000 (1.2-3.4); LYMPH% 10.9 % (20.5-51.1); MCH 32.1 PG (27-31); MCHC 31.8 g/dL (33-37); MCV 101.1 FL (81-99); MONO# 0.82 X1000 (0.11-0.59); MONO% 9.8 % (1.7-9.3); MPV 10.1 FL (7.4-10.4); NEUT# 6.53 X1000 (1.4-6.5); NEUT% 78.5 % (42.2-75.2); PLT 174 X1000 (130-400); RBC 2.71 XMIL (4.2-5.4); RDW 15.7 % (11.5-14.5); WBC 8.33 X1000 (4.8-10.8)
[2019-03-17 06:48] LABS: CALCIUM 8.1 mg/dL (8.8-10.2); CREATININE 0.9 mg/dL (0.5-0.9); POTASSIUM 3.4 mmol/L (3.5-5.1)
--- NOTE | 2019-03-17 07:37 | Diag Imaging Result Doc PS360 ---
EXAM: CHEST-PORTABLE INDICATION: dyspnea TECHNIQUE: One view COMPARISON: 03/16/2019 FINDINGS: Lung volumes are low similar to the previous study. Pulmonary venous congestion and mild edema appears stable to slightly improved as compared to the previous study. No new consolidation is identified. Cardiac silhouette is stable. IMPRESSION: Stable to slight improvement of pulmonary venous congestion and minimal edema. Electronically signed by Laz Becerril 03/17/2019 7:35 AM
[2019-03-17] MEDS: ATROVENT NEB INH SCH ×5 (07:44→23:14)
--- NOTE | 2019-03-17 08:15 | ORTHOPAEDICS PROGRESS NOTE ---
DATE: 03/17/2019 SUBJECTIVE: The patient was transferred down to PCU last night for increased pulmonary requirements. She previously underwent intramedullary nailing of her right hip earlier yesterday morning. She had a hip fracture after being found down outside overnight. The patient reports minimal pain in the hip. She is currently on BiPAP. OBJECTIVE: Hematocrit is 27. Extremities: Examination of the right lower extremity shows surgical dressing to be clean, dry, intact. Thigh is swollen; however, it is soft and compressible. Calf is soft and compressible. Motor intact, EHL, tibialis anterior, gastrocsoleus complex. Sensation is grossly intact to light touch in the foot. Dorsalis pedis pulse is palpable. ASSESSMENT: An 83-year-old female status post right hip trochanteric fixation nail, postoperative day 1. PLAN: 1. The patient can be weightbearing as tolerated, right lower extremity. Physical Therapy to work on mobilization and gait training once she is able to from a pulmonary standpoint. 2. Ice to right hip as needed for pain. 3. Lovenox for DVT prophylaxis. 4. Appreciate hospitalist's recommendations. 5. Disposition. The patient will likely need to be discharged to rehab or residential facility pending physical therapist's evaluation and recommendations. I will see her in clinic in 2 weeks for staple removal and followup x-rays.
[2019-03-17] MEDS: CRESTOR PO SCH (09:12)
[2019-03-17] MEDS: VITAMIN D PO SCH (09:12)
[2019-03-17] MEDS: NEXIUM PO SCH (09:12)
[2019-03-17] MEDS: FERROUS SULFATE PO SCH (09:13)
[2019-03-17] MEDS: NAMENDA PO SCH (09:13)
[2019-03-17] MEDS: ZITHROMAX PO SCH (09:13)
[2019-03-17] MEDS: SYNTHROID PO SCH (09:13)
[2019-03-17] MEDS: TOPROL XL PO SCH (09:13)
[2019-03-17] MEDS: VITAMIN B-1 PO SCH (09:13)
[2019-03-17] MEDS ORDERED: KLOR-CON PO ONE (14:03)
--- NOTE | 2019-03-17 14:33 | PROGRESS NOTE ---
DATE: 03/17/2019 SUBJECTIVE: Patient is resting in bed. OBJECTIVE: Vital Signs: Temperature 97.6 degrees, pulse 79, respiratory rate is 21, blood pressure is 134/83. Oxygen saturation is 99%. HEENT: Atraumatic and normocephalic. Cardiovascular System: S1, S2. Respiratory System: Has evidence of good air entry bilaterally. Abdomen: Soft, nontender. No masses felt. Extremities: No evidence of edema. Central Nervous System: No obvious focal deficits noted. Laboratory: WBC 8.33, hematocrit is 27.4, with a platelet count of 124,000. ABG 7.5/38/105/97.1/100.2. Sodium is 140, potassium 3.4, chloride is 99, bicarb is 29, BUN is 20, creatinine is 0.9. ProBNP is 2312. ASSESSMENT AND PLAN: 1. Status post repair of right hip fracture. Optimize pain control. Physical therapy as recommended by the orthopedic team. Maintain patient on deep venous thrombosis prophylaxis and also recommend incentive spirometry. 2. Probable acute pulmonary edema. We will maintain patient on diuretics and check a 2D echocardiogram of the heart. 3. Hypokalemia. Replace potassium. Check magnesium level. 4. Hypothyroidism. Maintain patient on levothyroxine. 5. Dementia. Supportive care. 6. Probable pneumonia. I doubt that the patient has pneumonia as the patient's x-ray shows more of pulmonary vascular congestion/edema. 7. Disposition. [facility]. cc: Gilbert Singh MD
[2019-03-17] MEDS ORDERED: ROBITUSSIN-DM PO PRN (16:34)
[2019-03-17] MEDS: OXY IR PO PRN (16:45)
[2019-03-17] MEDS: COLACE PO SCH (20:10)
[2019-03-17] MEDS: ELAVIL PO SCH (20:10)
--- NOTE | 2019-03-18 00:46 | CONSULTATION ---
DATE OF CONSULTATION: 03/17/2019 . REQUESTING PROVIDER: Dr. Pardeep Sen. REASON FOR CONSULTATION: Hypoxic respiratory failure. HISTORY OF PRESENT ILLNESS: This is an 83-year-old female with a medical history of dementia, gastroesophageal reflux disease, chronic kidney disease stage 3, hypertension, hyperlipidemia, hypothyroidism. She presented to the ER via EMS on 03/15/2019 after the patient's neighbor found her on the floor of the carport. Initial workup in the ER revealed right intertrochanteric femur fracture, hypophonia, hypoxemia, rhabdomyolysis. Initial chest x-ray showed left base basilar scarring versus recurrent atelectasis or infiltrate. After patient received several bags of normal saline, Chest x-ray on 03/16/2019 showing some pulmonary edema. So, She also has been treated with possible pneumonia and likely fluid overload. Her respiratory status started declining since yesterday, and she required BiPAP eventually. The patient currently is lying in bed with no acute distress noted. She is on a Venturi mask with FiO2 50%. She is pretty confused and disoriented. She told me her name, but she is disoriented with time, location, and situation. The patient has a medical history of dementia. There is no family at the bedside. The patient denies any chest pain or abdominal pain. At this time she reports right hip pain. She underwent closed reduction and intramedullary nailing of right intertrochanteric femur fracture yesterday by Dr. Diaz. The patient states she has nonproductive cough which is more noticeable over the last 2 days. PAST MEDICAL HISTORY: 1. Dementia. 2. Gastroesophageal reflux disease. 3. Chronic kidney disease, stage 3. 4. Hypertension. 5. Hyperlipidemia. 6. Hypothyroidism. 7. History of brain bleed after a fall 5 years ago. PAST SURGICAL HISTORY: 1. Closed reduction and intramedullary nailing of right intertrochanteric femur fracture by Dr. Diaz on 03/16/2019. 2. Hypertension. 3. Cataract removal. 4. Hysterectomy. 5. Repair of brain bleed 5 years ago. SOCIAL HISTORY: Per H and P the patient lives at home alone. She has children that are close and active in her care. She has no history of tobacco or illicit drug use. She drinks alcohol occasionally. FAMILY HISTORY: Positive for coronary artery disease. ALLERGIES: Ambien. REVIEW OF SYSTEMS: A 10-point review of systems was conducted and the pertinent is listed within the HPI, otherwise noncontributory. PHYSICAL EXAMINATION: Vital Signs: Temperature 98.2, blood pressure 133/68, pulse 85, respiratory rate 24, oxygen saturation 94% on BiPAP with FiO2 60% and pressure 12/6. General: Chronically ill-appealing, lying in bed with no acute distress noted. HEENT: Atraumatic, normocephalic. Trachea midline. Mucosa pink and slightly dry. Respiratory: Even and unlabored. Symmetrical excursion. Auscultation revealed diminished breathing sounds bilaterally, otherwise clear. Cardiovascular: Regular rate and rhythm. Gastrointestinal: Soft, nontender, nondistended. Normoactive bowel sounds in all 4 quadrants. Extremities: No pedal edema. No cyanosis. No clubbing. Dorsalis pedis diminished bilaterally. Neurologic: Alert and orient x1. Disoriented to time, place and situation. Speech fluent. Able to follow simple commands. LABORATORY DATA: White blood cells 8.33, hemoglobin 8.7, hematocrit 27.4, platelets 174,000. Sodium 140, potassium 3.4, chloride 99, carbon dioxide 29, BUN 20, creatinine 0.9, glucose 117. ProBNP 2312. ABG, pH 7.55, pCO2 of 38, PO2 od 105, HC03 of 32.7, base excess 10.0, and oxyhemoglobin 97.1. IMAGING DATA: Chest x-ray this morning shows stable to slight improvement of pulmonary venous congestion and minimal edema. ASSESSMENT: This is an 83-year-old female with a medical history of dementia, gastroesophageal reflux disease, chronic kidney disease, hypertension, hyperlipidemia, and hypothyroidism. She has been admitted since 03/15/2019 with right intertrochanteric femur fracture secondary to a fail at home, hypothermia, hypoxemia, rhabdomyolysis, and possible pneumonia. 1. Acute hypoxic respiratory failure. 2. Possible pneumonia with pulmonary edema. Chest x-ray showing stable to slight improvement of minimal edema this morning. 3. Dementia. 4. right intertrochanteric femur fracture secondary to a fall. Status post surgical repair. PLAN: 1. Continue supplemental oxygen as needed. Continue BiPAP as needed. 2. Continue diuretic as needed; continue antibiotics and bronchodilators. 3. Follow up with ABG, CBC, BMP and chest x-ray. 4. Continue GI and DVT prophylaxis. 5. Further recommendations pending hospital course. Thank you for the courtesy of this consultation. Dictated by TAMARA Nichols for Anabela Bynum MD cc: TAMARA Nichols MD [facility]
[2019-03-18] MEDS: XOPENEX NEB INH SCH ×6 (05:18→23:18)
[2019-03-18] MEDS: LOVENOX SUBQ SCH (06:03)
[2019-03-18] MEDS: TYLENOL PO SCH ×3 (06:03→21:47)
[2019-03-18] MEDS: MAXIPIME 2 GM in NS 100 ML IV SCH ×2 (06:03→16:05)
[2019-03-18] MEDS: PRILOSEC PO SCH (06:03)
[2019-03-18 06:48] LABS: HEMATOCRIT 26.5 % (37.0-47.0); HEMOGLOBIN 8.4 g/dL (12.0-16.0)
[2019-03-18 07:29] LABS: ALLEN TEST NO; BE 13.3 mmoll (-3.0-3.0); BLOOD TYPE ARTERIAL; HCO3-(ACT) 35.3 mmoll (20.0-26.0); METHB 1.2 % (0.0-1.5); O2HB 93.3 % (95.0-99.0); PCO2(98.6) 50 mmHg (35-45); PO2(98.6) 60 mmHg (60-100); SAMPLE BLOOD; SAO2 96.2 % (95.0-100.0); THB 8.3 g/dL (11.5-17.4); pH(98.6) 7.49 (7.35-7.45)
[2019-03-18 07:30] LABS: MODALITY CANNULA
[2019-03-18] MEDS: ATROVENT NEB INH SCH ×5 (08:03→23:18)
[2019-03-18] MEDS: CRESTOR PO SCH (08:16)
[2019-03-18] MEDS: ZITHROMAX PO SCH (08:16)
[2019-03-18] MEDS: NEXIUM PO SCH (08:16)
[2019-03-18] MEDS: SYNTHROID PO SCH (08:16)
[2019-03-18] MEDS: LASIX IV SCH (08:16)
[2019-03-18] MEDS: VITAMIN B-1 PO SCH (08:16)
[2019-03-18] MEDS: FERROUS SULFATE PO SCH (08:16)
[2019-03-18] MEDS: VITAMIN D PO SCH (08:16)
[2019-03-18] MEDS: TOPROL XL PO SCH (08:16)
[2019-03-18] MEDS: NAMENDA PO SCH (08:16)
--- NOTE | 2019-03-18 13:16 | ECHO REPORT ---
ORDER DATE: 03/17/2019 INDICATIONS: Hypertension, dementia, fractured hip. FINDINGS: 1. The right atrium appears normal in size at 3.4 cm. 2. Mild tricuspid regurgitation. RV systolic pressure of 44 mmHg. 3. Normal RV size and systolic function. 4. No significant pulmonic insufficiency. 5. Mild left atrial enlargement with a volume index of 29. 6. No mitral valve prolapse. Mild mitral regurgitation. No evidence of mitral stenosis. 7. Normal LV size. End-diastolic dimension of 5.2. Normal wall thicknesses. The posterior and interventricular septal wall thickness is 0.8 cm each. Normal LV systolic function. Estimated EF of 60% with normal wall motion. 8. Aortic valve opens well. It is trileaflet. No evidence of stenosis or insufficiency. 9. Aorta appears normal in visualized segments. 10. No pericardial effusion identified. cc: MD Talha Ferro MD MTDD
[2019-03-18] MEDS: OXY IR PO PRN (14:24)
--- NOTE | 2019-03-18 18:27 | PROGRESS NOTE ---
DATE: 03/18/2019 SUBJECTIVE: Her doctor is Dr. Jose Diaz. He had a fall with right hip pain. He is also followed by Dr. Marcial Gallegos. An 83-year-old with a prior history of dementia, hypothyroidism, hypertension, hyperlipidemia. Presented to the emergency room after being found on the carport by neighbors. Does not know how long she was on the carport and does not remember falling. She stated the patient thought that the day before she had a headache and felt bad. On arrival to the emergency room she had right leg pain and some swelling around the right eye. A CT of the pelvis showed an intertrochanteric fracture with right femur and varus deformity. PAST MEDICAL HISTORY: 1. Hypertension. 2. Dementia. 3. Hyperlipidemia. 4. Hypothyroidism. 5. Had a brain bleed about 5 years ago. OBJECTIVE: General: Today she is feeling better. Still has pain in the hip. She was sitting up in a chair. Vital signs: Temp 97.7 degrees, pulse 85, respirations 14, blood pressure 104/48. HEENT: Pupils are equal and round. Lungs: Clear in all lung joel. Cardiovascular: Regular rhythm and rate without murmur or S3. Urine output was 1,700 mL. ASSESSMENT AND PLAN: 1. Acute hypoxemic respiratory failure. Improved air and gas exchange. Possible pneumonia, pulmonary edema. X-ray appears to be stable and clinically she is improving in breathing. 2. Dementia. 3. Hypokalemia which has been supplemented. 4. Hypothyroidism. 5. Status post repair of right hip fracture. Continue to optimize pain control and continue physical therapy. REVIEW OF ORDERS: I do not see any changes. We are given thiamine 100 mg daily. Hematocrit is 27, hemoglobin 8.7 and stable. cc: Anton Krause MD
[2019-03-18] MEDS: MELATONIN PO SCH (21:46)
[2019-03-18] MEDS: COLACE PO SCH (21:47)
[2019-03-18] MEDS: ELAVIL PO SCH (21:47)
[2019-03-19] MEDS: HALDOL IV PRN (01:37)
[2019-03-19] MEDS: XOPENEX NEB INH SCH ×6 (03:31→23:20)
[2019-03-19 04:07] LABS: ALLEN TEST YES; BE 14.1 mmoll (-3.0-3.0); BLOOD TYPE ARTERIAL; HCO3-(ACT) 35.9 mmoll (20.0-26.0); METHB 0.9 % (0.0-1.5); MODALITY CANNULA; O2(CT) 11.6 mL/dL (15.0-23.0); O2HB 95.4 % (95.0-99.0); PCO2(98.6) 47 mmHg (35-45); PO2(98.6) 72 mmHg (60-100); SAMPLE BLOOD; SAO2 98.4 % (95.0-100.0); THB 8.6 g/dL (11.5-17.4); pH(98.6) 7.52 (7.35-7.45)
--- NOTE | 2019-03-19 06:01 | Diag Imaging Result Doc PS360 ---
EXAM: CHEST-1 VIEW HISTORY: SOB TECHNIQUE: Single view COMPARISON: 03/17/2019 FINDINGS: Poor inspiratory effort. Heart is mildly prominent. There are infiltrates in the lower left lung. These are more prominent than on the prior study. No pleural effusions identified. IMPRESSION: Mild interval worsening. Electronically signed by Devon Gonzáles 03/19/2019 5:58 AM
[2019-03-19] MEDS: TYLENOL PO SCH ×3 (06:07→22:16)
[2019-03-19] MEDS: PRILOSEC PO SCH (06:07)
[2019-03-19] MEDS: LOVENOX SUBQ SCH (06:07)
[2019-03-19] MEDS: MAXIPIME 2 GM in NS 100 ML IV SCH ×2 (06:07→17:00)
[2019-03-19 06:10] LABS: HEMATOCRIT 26.7 % (37.0-47.0); HEMOGLOBIN 8.6 g/dL (12.0-16.0)
[2019-03-19] MEDS: ATROVENT NEB INH SCH ×5 (07:58→23:20)
--- NOTE | 2019-03-19 08:41 | ORTHOPAEDICS PROGRESS NOTE ---
DATE: 03/18/2019 SUBJECTIVE: No acute events overnight. Patient's respiratory status is improving. She is off BiPAP and on oxygen by nasal cannula. She tried to get up with physical therapy today and ambulated 10 feet. She had no other complaints. OBJECTIVE: Examination of right lower extremity shows surgical dressing is clean, dry, intact. Thigh is soft and compressible. Calf is soft. Neurovascularly intact. LABORATORY: Hematocrit 27. ASSESSMENT: An 83-year-old female status post closed reduction intramedullary nailing of right intertrochanteric femur fracture. Postop day 2. PLAN: 1. Physical Therapy to mobilize. Weightbearing as tolerated right lower extremity. 2. Ice to the right lower extremity p.r.n. for pain. 3. Appreciate hospitalist recommendations. 4. Lovenox DVT prophylaxis. 5. Disposition: Per primary team. Patient likely to benefit from going to inpatient rehab facility. She will follow up with me in clinic in 2 weeks for wound check and x-rays.
[2019-03-19] MEDS: TOPROL XL PO SCH (09:08)
[2019-03-19] MEDS: CRESTOR PO SCH (09:08)
[2019-03-19] MEDS: SYNTHROID PO SCH (09:08)
[2019-03-19] MEDS: VITAMIN D PO SCH (09:08)
[2019-03-19] MEDS: ZITHROMAX PO SCH (09:09)
[2019-03-19] MEDS: LASIX IV SCH (09:09)
[2019-03-19] MEDS: NEXIUM PO SCH (09:09)
[2019-03-19] MEDS: VITAMIN B-1 PO SCH (09:09)
[2019-03-19] MEDS: FERROUS SULFATE PO SCH (09:09)
[2019-03-19] MEDS: NAMENDA PO SCH (09:10)
--- NOTE | 2019-03-19 10:16 | DISCHARGE SUMMARY ---
ADMISSION DATE: 03/15/2019 DISCHARGE DATE: 03/19/2019 HISTORY OF PRESENT ILLNESS: This is a patient of Dr. Marcial Gallegos's, who had a fall with right hip pain. Orthopedic doctor is Dr. Jose Diaz, and regular doctor is Dr. Marcial Gallegos, primary care doctor. An 83-year-old female with prior history of dementia, hypothyroidism, hypertension, hyperlipidemia, presented to the emergency room after being found out in the car port by her neighbors. Unknown how long she was actually down in the car port. She does not remember falling or the accident. The patient stated that the patient thought that she might have had the flu the day before because she had a headache and felt bad all over. On arrival to the emergency room, complained of right leg pain, headache, did have some swelling in her right eye. CT of the pelvis revealed intertrochanteric fracture of the right femur and a varus deformity. PAST MEDICAL HISTORY: 1. Hypertension. 2. Dementia. 3. Hyperlipidemia. 4. Hypothyroidism. 5. History of brain bleed after a fall 5 years ago. ADMISSION DIAGNOSIS: Fall with right intertrochanteric femur fracture, some hypothermia, presented with hypoxemia, rhabdomyolysis from lying on the ground, recent hip fracture, and left basilar scarring versus atelectasis on her x-ray. HOSPITAL COURSE: She has a history of dementia and a history of hypothyroidism. Continued her Synthroid. Orthopedics was consulted on 03/15/2019. I had a long discussion with family because her fracture pattern would benefit from closed reduction and intramedullary nailing, so that was pursued. She was put in Pugh's traction. She tolerated the procedure well. This was done on 03/16/2019, right intertrochanteric closed reduction and intramedullary nailing of the right intertrochanteric femur fracture. She steadily improved. She had an echocardiogram with Doppler just to evaluate her left ventricular function. LV function and size were normal, ejection fraction 60%, no valvular dysfunction. She showed steady improvement. Pulmonary was asked to see, Dr. Bynum, acute hypoxemic respiratory failure, possible pneumonia, and possible edema. X- ray showed slight improvement, so continued supplemental oxygen and gave her some diuretic, and clinically breathing improved. On chest x-ray on 03/19/2019, radiographically, left lower lung looked like there was some atelectasis, but clinically doing well, breathing comfortably, and felt she was ready to go to rehab. DISCHARGE MEDICATIONS: She will be on Elavil 50 mg at bedtime, will continue azithromycin 500 mg p.o. daily, and put her on Levaquin 500 mg daily as well, continue her iron 325 mg a day, Synthroid 75 mcg a day, melatonin 10 mg at bedtime, Namenda 10 mg p.o. daily, Toprol XL 25 mg a day, Crestor 10 mg a day. There is no growth on blood cultures, and her nasopharyngeal screen for influenza was negative for A and B. We will get her ready to go to rehab. cc: Anton Krause MD
[2019-03-19] MEDS: OXY IR PO PRN (12:22)
[2019-03-19] MEDS: COLACE PO SCH (22:16)
[2019-03-19] MEDS: ELAVIL PO SCH (22:16)
[2019-03-19] MEDS: MELATONIN PO SCH (22:16)
[2019-03-20] MEDS: XOPENEX NEB INH SCH ×3 (03:25→11:22)
[2019-03-20 05:15] LABS: ALLEN TEST YES; BE 14.2 mmoll (-3.0-3.0); BLOOD TYPE ARTERIAL; O2(CT) 13.1 mL/dL (15.0-23.0); O2HB 96.4 % (95.0-99.0); PO2(98.6) 158 mmHg (60-100); SAMPLE BLOOD; SAO2 99.6 % (95.0-100.0); THB 9.4 g/dL (11.5-17.4); pH(98.6) 7.48 (7.35-7.45)
[2019-03-20 05:17] LABS: MODALITY CANNULA; PCO2(98.6) 53 mmHg (35-45)
[2019-03-20] MEDS: PRILOSEC PO SCH (06:12)
[2019-03-20] MEDS: TYLENOL PO SCH ×2 (06:12→13:40)
[2019-03-20] MEDS: MAXIPIME 2 GM in NS 100 ML IV SCH (06:13)
[2019-03-20] MEDS: LOVENOX SUBQ SCH (06:13)
[2019-03-20] MEDS: ATROVENT NEB INH SCH ×2 (07:57→11:22)
--- NOTE | 2019-03-20 08:54 | PROVIDER PROGRESS NOTE ---
Progress Note Pulmonary additional note: Case assessed. Full note to follow.
[2019-03-20] MEDS: OXY IR PO PRN (09:51)
[2019-03-20] MEDS: NAMENDA PO SCH (09:52)
[2019-03-20] MEDS: VITAMIN B-1 PO SCH (09:52)
[2019-03-20] MEDS: LASIX IV SCH (09:52)
[2019-03-20] MEDS: SYNTHROID PO SCH (09:53)
[2019-03-20] MEDS: TOPROL XL PO SCH (09:53)
[2019-03-20] MEDS: VITAMIN D PO SCH (09:53)
[2019-03-20] MEDS: ZITHROMAX PO SCH (09:53)
[2019-03-20] MEDS: NEXIUM PO SCH (09:53)
[2019-03-20] MEDS: FERROUS SULFATE PO SCH (09:55)
--- NOTE | 2019-03-20 12:45 | DISCHARGE SUMMARY ---
ADMISSION DATE: 03/15/2019 DISCHARGE DATE: ADDENDUM: She should be ready to go to rehab today. Remains afebrile. See discharge summary. Review of her medications. I think she is ready to go to rehab today. cc: Anton Krause MD
[2019-03-20 12:47] VITALS: BP 86/53
[2019-03-20] MEDS ORDERED: CRESTOR PO SCH (21:00)
== END 2019-03-20 14:40 | DRG 956 ==
LOC: SUPCPDRO → ED 09:30 → EDIPHOLD 14:45 → SUATTDRO 14:45 → 4N 16:40 → 2N 03-16 17:22
PROVIDERS: ATTEND Emergency Medicine